=== PATIENT | male | born 1935 | race Caucasian/White ===

== ENCOUNTER 2019-04-28 14:01 | Inpatient (IN) | payer OTHER ==
[~2019-04-28] VITALS: Ht 177.8 cm; Wt 56.2 kg
[2019-04-28 14:14] VITALS: BP_SYST 83
--- NOTE | 2019-04-28 14:23 | NUR ---
Placed in room 02. Placed on rn cardiac, blood pressure machine and pulse oximeter. To gown for exam. Side rails up.
--- NOTE | 2019-04-28 14:30 | NUR ---
Pt presents to ED c/o N/V coffee ground emesis since this AM.Pt h/o liver CA, htn and hernia. Pt seen and treated in ED for same previously in [facility].
--- NOTE | 2019-04-28 14:32 | NUR ---
Pt vomiting, ER MD notified.
[2019-04-28] MEDS ORDERED: ONDANSETRON HCL 4 MG/2 ML VIAL IVP ONE (15:00)
--- NOTE | 2019-04-28 15:10 | NUR ---
Pt medicated for N/V.
--- NOTE | 2019-04-28 15:22 | NUR ---
Patient transported to radiology via gurney, accompanied by rad staff.
[2019-04-28 15:29] LABS: HEMATOCRIT 35.8 % (36-54); HEMOGLOBIN 11.6 g/dL (14.0-18.0); MEAN CORPUSCULAR HEMOGLOBIN 28 pg (27-31); MEAN CORPUSCULAR HGB CONC 32 % (32-36); MEAN CORPUSCULAR VOLUME 85 fL (79.0-98.0); PLATELET COUNT (AUTO) 401 K/uL (130-430); RED BLOOD CELL COUNT(AUTO) 4.21 MIL/uL (4.2-6.2); RED CELL DISTRIBUTION WIDTH 16.7 % (9.0-15.0); WHITE BLOOD COUNT (AUTO) 27.4 K/uL (4.8-10.8)
--- NOTE | 2019-04-28 15:30 | NUR ---
Returned from radiology, back to [facility].
[2019-04-28] MEDS ORDERED: OMEP-268 PO (15:39)
[2019-04-28 15:40] LABS: ANION GAP 13 (5-15); CALCIUM 9.3 mg/dL (8.4-11.0); CHLORIDE 86 mmol/L (98-107); CREATININE 2.16 mg/dL (0.55-1.30); GLUCOSE 166 mg/dL (70-99); POTASSIUM 3.4 mmol/L (3.5-5.1); SODIUM SERUM 125 mmol/L (136-145); UREA NITROGEN, BLOOD 34 mg/dL (8-21)
[2019-04-28] MEDS ORDERED: LISI1TAB9 PO (15:41)
[2019-04-28] MEDS ORDERED: [UNRECOGNIZED DRUG - CODE] PO (15:41)
[2019-04-28] MEDS ORDERED: TAMS-11 PO (15:42)
[2019-04-28] MEDS ORDERED: CARV25TA55 PO (15:42)
[2019-04-28 15:45] LABS: INR 1.7 (0.80-1.20); PROTHROMBIN TIME 16.7 SECS (9.5-12.5)
[2019-04-28 15:46] LABS: ALANINE AMINOTRANSFERASE 396 U/L (12-78); ASPARTATE AMINOTRANSFERASE 686 U/L (10-37)
[2019-04-28 16:07] LABS: LIPASE 3145 U/L (73-393)
--- NOTE | 2019-04-28 16:15 | NUR ---
Pt resting reports nausea resolved at this time.
--- NOTE | 2019-04-28 17:10 | NUR ---
Pt had episode of ALOC, pt recovered quickly to baseline.Dr. Ahumada at bedside.
[2019-04-28] MEDS ORDERED: NACL 0.9% 1,000 ML IV ONE (17:15)
--- NOTE | 2019-04-28 17:45 | NUR ---
Pt medicated for vomiting.
--- NOTE | 2019-04-28 17:52 | NUR ---
Patient will be admitted to care of . Admitted to telemetry unit. Will go to room 121C. Summary report printed. Report will be given at bedside.
[2019-04-28 17:56] LABS: BAND % (MANUAL) 10 % (0-6); EOSINOPHILS % (MANUAL) 0 % (0-7); LYMPHOCYTES % (MANUAL) 1 % (20-46); MONOCYTES % (MANUAL) 3 % (0-11)
[2019-04-28 17:57] LABS: BASOPHILS % (MANUAL) 0 % (0-2)
[2019-04-28] MEDS ORDERED: ONDANSETRON HCL 4 MG/2 ML VIAL IVP PRN (18:00)
[2019-04-28] MEDS ORDERED: ONDANSETRON HCL 4 MG/2 ML VIAL ONE (18:30)
[2019-04-28] MEDS ORDERED: MORPHINE 4 MG/ML INJ. SYRINGE IVP PRN (18:45)
[2019-04-28] MEDS ORDERED: MORPHINE 2 MG/ML INJ. SYRINGE IVP PRN (18:45)
[2019-04-28] MEDS ORDERED: ACETAMINOPHEN 325 MG TABLET PO PRN (18:45)
[2019-04-28] MEDS ORDERED: LEVOFLOXACIN 500 MG/D5W 100 ML IV ONE (18:45)
[2019-04-28] MEDS ORDERED: METOCLOPRAMIDE HCL 10 MG/2 ML VIAL IVP PRN (18:45)
--- NOTE | 2019-04-28 19:05 | NUR ---
Admission Note Received patient from ER with diagnosis of SEPSIS and GI BLEED. Initial Plan of Care discussed-patient verbalized understanding. Family at bedside. Oriented to room, call light, pain management and safety.
[2019-04-28 19:29] LABS: BILIRUBIN,URINE 2+ (NEGATIVE); BLOOD, URINE NEGATIVE (NEGATIVE); CLARITY/URINE SL CLOUDY (CLEAR); COLOR,URINE AMBER (YELLOW); GLUCOSE,URINE NEGATIVE (NEGATIVE); KETONES,URINE TRACE (NEGATIVE); LEUKOCYTE ESTERASE ,URINE NEGATIVE (NEGATIVE); NITRITE, URINE POSITIVE (NEGATIVE); PROTEIN URINE TRACE (NEGATIVE)
[2019-04-28 19:38] VITALS: BP_SYST 96
[2019-04-28 19:52] LABS: BACTERIA,URINE MODERATE /HPF (None Seen); MUCUS,URINE None Seen /LPF (None Seen); RBC,URINE 0-3 /HPF (0-3); WBC,URINE 0-3 /HPF (0-3)
[2019-04-28 19:53] LABS: URINE AMORPHOUS URATE 1+ /HPF (None Seen)
[2019-04-28] MEDS: ONDANSETRON HCL 4 MG/2 ML VIAL IVP PRN (19:59)
[2019-04-28 20:00] VITALS: BP_SYST 109
[2019-04-28] MEDS: metroNIDAZOLE 500 mg/NS 100 ML IV SCH (20:35)
[2019-04-28] MEDS: D5NS 1,000 ML IV SCH (20:36)
[2019-04-28] MEDS: PANTOPRAZOLE SODIUM 40 MG/VIAL (PROTONIX) IVP SCH (20:54)
--- NOTE | 2019-04-28 21:00 | NUR ---
ROUNDS Patient in bed resting, eyes closed, appears to be asleep. No signs of discomfort noted. Chest rise and fall even bilaterally. IVF infusing well. HOB raised. Call light with patient. Will continue to monitor.
[2019-04-28 22:14] LABS: HEMATOCRIT 33.6 % (36-54); HEMOGLOBIN 10.8 g/dL (14.0-18.0)
--- NOTE | 2019-04-28 23:00 | NUR ---
ROUNDS Patient sleeping at this time. No s/s of acute distress. Breathing even and unlabored. IVF infusing well. Call light within reach. Will continue to monitor.
--- NOTE | 2019-04-28 23:26 | NUR ---
CONSULTATION PAGED REASON FOR CONSULTATION: POSSIBLE SURGERY WAS CONSULT CALLED? YES PERSON WHO WAS NOTIFIED: MANDI CONSULTING PHYSICIAN: XAVIER POLE FRAME CONSTRUCTION WORKER SPECIALTY: SURGEON POLE FRAME CONSTRUCTION WORKER PHONE NUMBER: [phone] ORDERING PHYSICIAN: EVITA
--- NOTE | 2019-04-28 23:28 | NUR ---
CONSULTATION PAGED REASON FOR CONSULTATION: GI BLEEDING WAS CONSULT CALLED? YES PERSON WHO WAS NOTIFIED: ANTOINE CONSULTING PHYSICIAN:ANDREW HARGROVE TYPING TEACHER SHOT BLASTER SPECIALTY:GASTRO SHOT BLASTER PHONE NUMBER: [phone] ORDERING PHYSICIAN: EVITA
[2019-04-29] VITALS (14 sets, daily range): BP systolic 86–121
--- NOTE | 2019-04-29 01:00 | NUR ---
ROUNDS Patient in bed awake, resting. No signs of discomfort, patient denies pain at this time. Chest rise and fall even bilaterally. IVF infusing well. Call light with patient. Will continue to monitor.
[2019-04-29] MEDS: metroNIDAZOLE 500 mg/NS 100 ML IV SCH ×3 (02:05→18:19)
[2019-04-29] MEDS: D5NS 1,000 ML IV SCH ×3 (02:05→23:29)
[2019-04-29] MEDS: ONDANSETRON HCL 4 MG/2 ML VIAL IVP PRN ×2 (02:07→08:22)
--- NOTE | 2019-04-29 03:00 | NUR ---
ROUNDS Patient sleeping at this time. No s/s of acute distress noted. Breathing even and unlabored. IVF infusing well. Call light with patient. Will continue to monitor.
--- NOTE | 2019-04-29 05:00 | NUR ---
BLADDER SCAN Patient has yet had the urge to pee throughout shift. Conducted bladder scan at this time. 220 ml detected. Patient denies any pain or discomfort. Will continue to monitor and reassess. Charge nurse made aware. Call light with patient.
--- NOTE | 2019-04-29 06:10 | NUR ---
CRITICAL LAB VALUE Lab informed RN, MAURICIO shows positive for gram negative rods. Patient already receiving antibiotics. SUSCEPTIBILITIES TO FOLLOW. Will notify MD and endorse to oncoming nurse.
--- NOTE | 2019-04-29 06:30 | NUR ---
CLOSING NOTES Patient in bed sleeping at this time. No s/s of acute distress noted. Breathing even and unlabored. IVF infusing well, IV site patent, no signs of infiltration or infection noted. HOB raised. Skin warm and dry to touch. No active bleeding noted. All needs met throughout shift. Fall and safety precautions maintained throughout shift. Will continue to monitor until patient care is endorsed to oncoming dayshift nurse.
[2019-04-29 06:56] LABS: BASOPHILS % (AUTO) 0.1 % (0.0-2.0); HEMATOCRIT 32.6 % (36-54); HEMOGLOBIN 10.5 g/dL (14.0-18.0); LYMPHOCYTES # (AUTO) 0.2 K/uL (1.0-5.5); LYMPHOCYTES % (AUTO) 0.7 % (20.5-51.5); MEAN CORPUSCULAR HEMOGLOBIN 27 pg (27-31); MEAN CORPUSCULAR HGB CONC 32 % (32-36); MEAN CORPUSCULAR VOLUME 85 fL (79.0-98.0); MONOCYTES # (AUTO) 0.6 K/uL (0.0-1.0); NEUTROPHILS # (AUTO) 26.4 K/uL (1.8-7.7); NEUTROPHILS % (AUTO) 97.2 % (40.0-70.0); PLATELET COUNT (AUTO) 304 K/uL (130-430); RED BLOOD CELL COUNT(AUTO) 3.85 MIL/uL (4.2-6.2); RED CELL DISTRIBUTION WIDTH 16.1 % (9.0-15.0); WHITE BLOOD COUNT (AUTO) 27.2 K/uL (4.8-10.8)
[2019-04-29 07:19] LABS: ALANINE AMINOTRANSFERASE 503 U/L (12-78); ALBUMIN 1.7 g/dL (3.4-4.8); ANION GAP 14 (5-15); ASPARTATE AMINOTRANSFERASE 931 U/L (10-37); CALCIUM 8.4 mg/dL (8.4-11.0); CHLORIDE 87 mmol/L (98-107); CREATININE 2.31 mg/dL (0.55-1.30); GLUCOSE 160 mg/dL (70-99); POTASSIUM 3.7 mmol/L (3.5-5.1); SODIUM SERUM 126 mmol/L (136-145); TOTAL BILIRUBIN 1.8 mg/dL (0.0-1.0); UREA NITROGEN, BLOOD 43 mg/dL (8-21)
--- NOTE | 2019-04-29 07:30 | NUR ---
Opening note Patient resting in bed, A/O x 4, no complaints of pain. Patient noted with 50cc coffee ground emesis. No aspiration noted, HOB kept elevated. IV site patent, intact, and infusing as ordered. No infiltration noted. On fall precautions, bed kept in lowest position, 2 side rails up, bed alarm on, call light within reach.Will continue to monitor.
[2019-04-29] MEDS: PANTOPRAZOLE SODIUM 40 MG/VIAL (PROTONIX) IVP SCH ×2 (08:22→21:11)
--- NOTE | 2019-04-29 09:50 | NUR ---
Bladder scan Patient noted with 220ml urine residual. made aware, no new orders at this time.
--- NOTE | 2019-04-29 10:10 | NUR ---
[facility] [id number] S/W SAMANTA EXCHANGE
--- NOTE | 2019-04-29 10:50 | NUR ---
Sepsis risk Patient is sepsis risk, asked for IV fluid bolus, notified Dr. Meadows, no orders received.
[2019-04-29] MEDS ORDERED: NACL 0.9% 1,000 ML IV SCH ×2 (12:00→13:00)
--- NOTE | 2019-04-29 12:10 | NUR ---
Dr. Diaz rounds Patient resting in bed, family at bedside, Dr. Diaz at bedside. made aware of low BP, and increased Heart rate, recommends transferring to ICU and IV fluids bolus. Addendum: 04/29/19 at 1305 by Jake Stubbs RN BP 81/47 HR 119
--- NOTE | 2019-04-29 12:28 | NUR ---
Report Report given to Rhonda from ICU, Patient resting in bed at this time. Family at bedside made aware of transfer to ICU. contract technician at bedside to draw Blood cultures, and Lactic acid.
--- NOTE | 2019-04-29 12:59 | NUR ---
Global Safety Officer Note Patient referred to Global Safety Officer by Dr Diaz to assist in discussion on treatment decisions for patient. BUILDING SUPPLIES SALESPERSON RETAIL spoke with patient's sons, Dominic and Abraham. They stated they had just decided to go ahead with all treatment to stabilize patient. They stated they would want patient to continue as a full code and that is what patient says he wants. (Patient is alert and oriented.) They stated they understand that patient needs to receive treatment here and quickly and, once stable, can be transferred. They are wanting him to go to the [facility] as they know the doctors there. Dr Diaz and Chichi MIJARES indicate that, as per patient's insurance, he may need to be transferred to [facility]. Patient's son, Abraham, is the caregiver. He is anxious about providing care for patient. BUILDING SUPPLIES SALESPERSON RETAIL asked DYLLAN Cadet to relay to patient's insurance that son would benefit from home health visit and teaching. BUILDING SUPPLIES SALESPERSON RETAIL offered patient's sons contact information for Global Safety Officer. Will remain available.
--- NOTE | 2019-04-29 13:05 | NUR ---
Received pt from [facility] to ICU bed 4. Pt alert and oriented sitting up in the high fowlers position. Denies pain. BP 97/59 on arrival, HR 110, RR 20 and 02 sats 95% on room air. Lungs clear. IV NS bolus completed. IVF infusing at 125cc/hr. Abd distended with bowel sounds. No edema. Pt and family state he hasn't really voided all day that they know of. Pt is ST on monitor. Will continue to monitor the pt.
--- NOTE | 2019-04-29 13:05 | NUR ---
Transfer to ICU Patient transferred to ICU, in stable condition. BP 91/57 HR 112. IV bolus infusing as ordered, tolerating well, no infiltration noted. No Nausea, no vomiting noted. Belongings with family. Patient received by Rhonda CHI.
[2019-04-29 13:18] LABS: HEMATOCRIT 27.5 % (36-54); HEMOGLOBIN 8.9 g/dL (14.0-18.0)
--- NOTE | 2019-04-29 13:21 | NUR ---
PAGED: DR. JAMA DIALED [phone] SPOKE TO CANDIDA
--- NOTE | 2019-04-29 13:25 | NUR ---
Discussed PICC line placement with pt and his 2 sons. They will talk it over and let staff know if they decide to proceed with it.
[2019-04-29] MEDS ORDERED: HYDROCORTISONE SOD SUCC 100 MG/2 ML VIAL IVP ONE (13:45)
--- NOTE | 2019-04-29 13:47 | NUR ---
Dietitian Recommendations *Recommend continue NPO per MD orders. *If/when medically appropriate, advance diet to 2gm Na diet w/ Ensure Enlive TID. ONS will provide additional 1050 kcal and 60 gm protein daily. Please see Nutritional Assessment for details. BRANDON, RD
[2019-04-29] MEDS: AZTREONAM 1 GM in NS 50 ML IV SCH ×2 (14:03→21:11)
--- NOTE | 2019-04-29 14:05 | NUR ---
Morales cath placed using sterile technique. Small amount of dark dieter urine returned. Will continue to monitor urine output.
[2019-04-29] MEDS ORDERED: HYDROCORTISONE SOD SUCC 100 MG/2 ML VIAL ONE (14:12)
--- NOTE | 2019-04-29 16:18 | NUR ---
CASE MANAGEMENT: CM MET WITH PATIENT, PATIENT SONS (YUSUF AND ANA CRISTINA) AT BEDSIDE AND DISCUSS DC PLAN. PATIENT IS ALERT AND ORIENTED x 4, LIVES IN A [address] HOME WITH HIS SONS (ANA CRISTINA AND YUSUF). PATIENT'S SON (YUSUF) STAYS WITH PATIENT 04/06. PATIENT STATED HE HAD HIS LAST CHEMOTHERAPY ON FEBRUARY 19, 2019. NEXT APPOINTMENT WILL BE FOR A CT SCAN OF THE LIVER AROUND May,. HE SEES LIVER SPECIALIST AT [facility]. CM INFORMED PATIENT AND PATIENT'S SON THAT HE HAS HMO INSURANCE ([facility]) POSSIBLE TRANSFER TO CONTRACTED FACILITY ONCE STABLE. PATIENT'S SON WANTS PATIENT TO BE TRANSFERRED TO [facility]. CM ASKED PATIENT REGARDING VA CARD. PATIENT'S SON STATED HE HAS IT IN THE CAR. CM TO FOLLOW UP WITH DC PLANNING ONCE STABLE.
--- NOTE | 2019-04-29 16:35 | NUR ---
PAGED: DR. JAMA DIALED [phone] SPOKE TO EMILIA
--- NOTE | 2019-04-29 16:44 | NUR ---
CONSULT PAGED: ANDRIY CASTILLO SPOKE TO GLORY DIALED [phone] JAMA
--- NOTE | 2019-04-29 16:50 | NUR ---
Spoke with Dr. Meadows regarding low urine output. Orders left for renal consult and Call placed to Dr. Dawson.
--- NOTE | 2019-04-29 16:51 | NUR ---
Spoke with Dr. Dawson on the phone and questions answered. He will be in to see the pt.
--- NOTE | 2019-04-29 17:12 | NUR ---
Family back in to visit. Pt remains in ST rate 105 and BP 140/60. No further emesis but pt c/o nausea. Will continue to monitor.
--- NOTE | 2019-04-29 17:45 | NUR ---
Dr. Dawson in to see pt.
--- NOTE | 2019-04-29 18:21 | NUR ---
Consult Dr. Galo Called Dr. Galo regarding the consult for him that was ordered. He said Dr. Meadows told him he didn't need to see the pt and asked me to call him and confirm it and then to call him back.
--- NOTE | 2019-04-29 18:22 | NUR ---
Call out to Dr. Meadows.
--- NOTE | 2019-04-29 18:25 | NUR ---
BP 88/[address] Meadows regarding the consult for Dr. Galo. He said for the consult to be cancelled. Call out to Dr. Galo to let him know. I also informed Dr. Meadows about the pts BP 88/58 and he did not leave any orders.
--- NOTE | 2019-04-29 18:28 | NUR ---
called Dr. Galo's exchange and spoke to
--- NOTE | 2019-04-29 18:32 | NUR ---
Dr. Galo Spoke with and informed him that Dr. Meadows did not think he needed to see the pt.
--- NOTE | 2019-04-29 19:15 | NUR ---
PM ASSESSMENT Pt in bed w/ eyes open resting comfortably. Pt able to verbalize needs at this time. No needs or signs of discomfort noted. VSS w/ SR seen on the monitor. Pt on 1L O2 via NC tolerating well w/ O2 sats @ 98% and even and unlabored breathing. IV noted to L FA infusing D5 1/2 NS @ 100 cc/hr. IV c/d/i. Morales cath noted draining urine to gravity. Bed is locked and in lowest position, call light w/in reach, will continue to monitor. Addendum: 04/29/19 at 2159 by Ej Nazario RN IVF D5 NS, not D5 1/2 NS
[2019-04-29] MEDS: HYDROCORTISONE SOD SUCC 100 MG/2 ML VIAL IVP SCH (21:11)
--- NOTE | 2019-04-29 21:20 | NUR ---
Pt's son's visiting at this time. No signs of acute distress or discomfort noted. Questions answered, will continue to monitor pt.
[2019-04-29 21:32] LABS: HEMATOCRIT 27.5 % (36-54)
[2019-04-30] VITALS (21 sets, daily range): BP systolic 90–142
--- NOTE | 2019-04-30 00:45 | NUR ---
CHG Offered pt CHG bath at this time. Pt refused stating "I'm ok for now, i feel good, i'll wait for tomorrow". Educated pt on benefits of daily CHG baths. No signs of acute distress or discomfort noted. Will continue to monitor pt.
[2019-04-30] MEDS: metroNIDAZOLE 500 mg/NS 100 ML IV SCH ×3 (01:33→17:21)
[2019-04-30] MEDS: ONDANSETRON HCL 4 MG/2 ML VIAL IVP PRN (04:07)
--- NOTE | 2019-04-30 04:07 | NUR ---
Pt c/o n/v at this time. Medicated pt w/ zofran per MD order at this time. Pt tolerated well, will continue to monitor.
[2019-04-30] MEDS: AZTREONAM 1 GM in NS 50 ML IV SCH ×2 (05:22→13:39)
[2019-04-30] MEDS: HYDROCORTISONE SOD SUCC 100 MG/2 ML VIAL IVP SCH ×2 (05:22→13:39)
[2019-04-30 06:07] LABS: BASOPHILS % (AUTO) 0.1 % (0.0-2.0); HEMATOCRIT 32.7 % (36-54); HEMOGLOBIN 10.6 g/dL (14.0-18.0); LYMPHOCYTES # (AUTO) 0.3 K/uL (1.0-5.5); MEAN CORPUSCULAR HEMOGLOBIN 27 pg (27-31); MEAN CORPUSCULAR HGB CONC 32 % (32-36); MEAN CORPUSCULAR VOLUME 85 fL (79.0-98.0); MONOCYTES # (AUTO) 0.8 K/uL (0.0-1.0); NEUTROPHILS # (AUTO) 24.3 K/uL (1.8-7.7); NEUTROPHILS % (AUTO) 95.9 % (40.0-70.0); PLATELET COUNT (AUTO) 195 K/uL (130-430); RED BLOOD CELL COUNT(AUTO) 3.87 MIL/uL (4.2-6.2); RED CELL DISTRIBUTION WIDTH 16.9 % (9.0-15.0); WHITE BLOOD COUNT (AUTO) 25.3 K/uL (4.8-10.8)
--- NOTE | 2019-04-30 06:10 | NUR ---
Tried to reposition pt at this time but pt stated "i don't want the pillow under me right now". Educated the pt about repositioning. Pt supine at this time. Will continue to monitor pt.
--- NOTE | 2019-04-30 06:40 | NUR ---
Dr. Sridhar Diaz called about pt's blood culture results at this time. New orders received, will carry out orders.
[2019-04-30 06:49] LABS: ALANINE AMINOTRANSFERASE 529 U/L (12-78); ALBUMIN 1.7 g/dL (3.4-4.8); ANION GAP 10 (5-15); ASPARTATE AMINOTRANSFERASE 702 U/L (10-37); CALCIUM 8.3 mg/dL (8.4-11.0); CHLORIDE 94 mmol/L (98-107); CREATININE 2.67 mg/dL (0.55-1.30); GLUCOSE 172 mg/dL (70-99); POTASSIUM 3.3 mmol/L (3.5-5.1); SODIUM SERUM 127 mmol/L (136-145); TOTAL BILIRUBIN 1.8 mg/dL (0.0-1.0); UREA NITROGEN, BLOOD 60 mg/dL (8-21)
--- NOTE | 2019-04-30 07:08 | NUR ---
ENDORSEMENT Report given to Bryant [facility]I using SBAR format, no signs of acute distress or discomfort noted.
--- NOTE | 2019-04-30 07:25 | NUR ---
Opening Note Received bedside report from Ej CHI for continuation of care. Received patient awake in bed, no signs or symptoms of acute distress noted. Bed locked in lowest position, bed alarm on, and call light within reach.
--- NOTE | 2019-04-30 07:52 | NUR ---
Dr. Meadows in to see patient. New orders received.
--- NOTE | 2019-04-30 07:53 | NUR ---
Dr. Meadows made aware of potassium 3.3. Per Dr. Meadows, no new orders.
[2019-04-30] MEDS: PANTOPRAZOLE SODIUM 40 MG/VIAL (PROTONIX) IVP SCH (08:12)
[2019-04-30] MEDS ORDERED: LEVOFLOXACIN 500 MG/D5W 100 ML IV SCH (09:00)
[2019-04-30] MEDS ORDERED: LEVOFLOXACIN 250 MG/D5W 50 ML IV SCH (09:00)
[2019-04-30] MEDS ORDERED: VANCOMYCIN HCL 750 MG in NS 250 ML IV SCH (09:00)
[2019-04-30] MEDS: D5NS 1,000 ML IV SCH ×2 (10:16→19:32)
--- NOTE | 2019-04-30 10:25 | NUR ---
Dr. Dawson in to see patient. No new orders.
--- NOTE | 2019-04-30 10:47 | NUR ---
Dr. Toussaint in to see patient. No new orders.
--- NOTE | 2019-04-30 12:09 | NUR ---
Dr. Chan at bedside examining patient and updating patient/family on plan of care. No new orders.
[2019-04-30 13:08] LABS: HEMATOCRIT 32.9 % (36-54); HEMOGLOBIN 10.5 g/dL (14.0-18.0)
--- NOTE | 2019-04-30 16:45 | NUR ---
DC PLANNING: DYLLAN FAXED TRANSFER ORDER TO CONTRACTED FACILITY TO JAY (CM @ [facility]) @ F [phone] CM SPOKE WITH JAY (DYLLAN @ [facility] ) @ [phone]. PATIENT IS CAPITATED TO [facility]. CURRENTLY WAITING FOR BED AT [facility]. WILL CALL ICU NURSING STATION ONCE BED IS AVAILABLE. CLIENT SUCCESS DIRECTOR CM @ [facility] [employer] [facility] IS @ [phone] FOR ANY DISCHARGE NEEDS AFTER HOURS. DYLLAN SPOKE WITH PATIENT AND PATIENT'S FAMILY AT BEDSIDE AND INFORMED THEM OF THE TRANSFER TO [facility] ONCE BED IS AVAILABLE. MADE FAMILY AWARE MIGHT HAPPENED TONIGHT. PATIENT AND PATIENT'S FAMILY AGREEABLE TO THE TRANSFER. FOR TRANSPORTATION: USE [facility] @ P TRANSPORTATION AUTHORIZATION # [id number] NURSE RILEY STOCK AWARE. Addendum: 04/30/19 at 1656 by Chichi Degroot RN [facility] TRANSFER CENTER NUMBER P
--- NOTE | 2019-04-30 19:02 | NUR ---
Endorsement Endorsed bedside report to Ej RN using SBAR approach for continuation of care.
--- NOTE | 2019-04-30 19:15 | NUR ---
PM ASSESSMENT Pt in bed w/ eyes open resting comfortably. Family at bedside. Pt able to verbalize needs at this time. No needs or signs of discomfort noted. VSS w/ ST seen on the monitor. Pt on 1L O2 via NC tolerating well w/ O2 sats @ 98% and even and unlabored breathing. IV noted to L FA 20g infusing D5NS @ 100 cc/hr. IV c/d/i. Morales cath noted draining urine to gravity. Bed is locked and in lowest position, call light w/in reach, will continue to monitor.
--- NOTE | 2019-04-30 19:30 | NUR ---
Endorsed report to [facility] at [facility] via phone for continuation of care. All questions answered clearly.
--- NOTE | 2019-04-30 19:50 | NUR ---
[facility] here to spanish moss picker the pt for transfer to [facility] to room 342-A. Report already given to receiving nurse. Pt tolerated transfer well, no signs of acute distress or discomfort noted.
== END 2019-04-30 20:00 | disposition short-term general hospital (02) | DRG 871 ==
LOC: SED 14:01 → STU 17:59 → SIC 18:35 → STU 19:25 → SIC 04-29 12:51
PROVIDERS: ADMIT Internal Medicine Hospice and Palliative Medicine; ATTEND Internal Medicine Hospice and Palliative Medicine
DX: A41.50 Gram-negative sepsis, unspecified (principal); K85.90 Acute pancreatitis without necrosis or infection, unspecified; R65.21 Severe sepsis with septic shock; N17.0 Acute kidney failure with tubular necrosis; B17.9 Acute viral hepatitis, unspecified; D68.9 Coagulation defect, unspecified; K56.609 Unspecified intestinal obstruction, unspecified as to partial versus complete obstruction; C78.7 Secondary malignant neoplasm of liver and intrahepatic bile duct; K74.60 Unspecified cirrhosis of liver; K44.9 Diaphragmatic hernia without obstruction or gangrene; K80.20 Calculus of gallbladder without cholecystitis without obstruction; K57.90 Diverticulosis of intestine, part unspecified, without perforation or abscess without bleeding; B19.20 Unspecified viral hepatitis C without hepatic coma; I25.10 Atherosclerotic heart disease of native coronary artery without angina pectoris; I25.2 Old myocardial infarction; Z85.05 Personal history of malignant neoplasm of liver; Z87.891 Personal history of nicotine dependence; Z95.5 Presence of coronary angioplasty implant and graft; Z98.82 Breast implant status; Z88.0 Allergy status to penicillin
CPT/HCPCS: 36415; 80053; 81000-TC; 82140-TC; 83605; 83690-TC; 85007; 85018-TC; 85025; 85027; 85610-TC; 85730-TC; 86886; 86900; 86901; 87040-TC; 87086; 87186-TC; 93005; 96365; 96375; 96376; 99291; C9113; G0378; J1720; J1956; J2405; J3370; J3490; J7030; J7042; J7050